=== PATIENT | female | born 2000 | race Hispanic/Latino ===

== ENCOUNTER 2025-02-18 00:55 | Emergency (ER) | payer MEDICAID ==
[~2025-02-18] VITALS: Ht 162.6 cm; Wt 46.7 kg
--- NOTE | 2025-02-18 01:14 | ERN ---
ED Note History of Present Illness Stated Complaint: DIZZINESS,SYNCOPE Chief Complaint: Syncope Time Seen by MD: 01:07 Dictation: This is a 24-year-old female who presented to the emergency room complaining of dizziness and near-syncope for the past 3 days. Apparently she has been feeling dizzy all the time but denied any fevers chills or rigors. No nausea vomitings diarrhea. Last night at 11:40 p.m. patient apparently had so much dizziness she almost had a syncope but no loss of consciousness no fall or injuries and she was helped to the ground by her spouse no seizure activity. No blurred vision diplopia motor weakness or slurred speech. Patient stated that for the past few days she can not hear well with a left ear. She also reports humming noise in the left ear. No nausea vomitings no blurred vision diplopia motor weakness or seizure activity. No ear drainage. She states that she has felt unsteady. Temperature 96.3 pulse 89 respirations 18 blood pressure 113/69 with a pulse oximetry of 98% on room air History of anemia in the past. Allergies: Coded Allergies: No Known Allergies (Unverified Allergy, Unknown, 02/18/25) Home Meds Active Scripts Meclizine HCl (Meclizine HCl) 25 Mg Tablet, 25 MG PO TID for vertigo, #30 TAB 0 Refills Prov:JACEK MICHAUD MD 02/18/25 Prednisone (Prednisone) 20 Mg Tablet, 1 TAB PO AD for 6 Days, #14 TAB 0 Refills TAKE 1 TAB BY MOUTH THREE TIMES PER DAY X3 DAYS, THEN TAKE 1 TAB BY MOUTH TWICE A DAY X2 DAYS, THEN TAKE 1 TAB BY MOUTH ONCE A DAY X1 DAY. Prov:JACEK MICHAUD MD 02/18/25 Past Medical History Past Medical History: Anemia Surgical History: Family History: Negative Social History: Negative History: Not Applicable LMP: Jan 23, 2025 RN Note Reviewed/Agreed w/PFSH: Yes Review of System Dictation Constitutional: Negative for fever,chills, and weight loss Eyes: Negative for injury, pain,redness, and discharge ENT: Negative for injury,pain or swelling, positive for hearing loss in the left side Cardiovascular: Negative for chest pain, palpitations, and edema positive for dizziness and near-syncope, unsteady Respiratory: Negative for shortness of breath, cough, and wheezing, Abdomen/GI: Negative for abdominal pain, nausea, vomiting, diarrhea, and constipation Back: Negative for injury and pain : Negative for injury, bleeding and discharge MS/Extremity: Negative for injury and deformity Skin: Negative for rash, and discoloration Neuro: Negative for headache, weakness, numbness, tingling, and seizure Psych: Negative for suicide ideation, homicidal ideation, and hallucinations Initial Vital Sign VS Vital Signs Date Time Temp Pulse Resp B/P (MAP) Pulse Ox O2 Delivery O2 Flow Rate FiO2 02/18/25 00:56 96.3 89 18 113/69 98 Room Air 02/18/25 01:06 0 21 Physical Exam Dictation General: awake, alert, NAD Head/Face: Normocephalic, atraumatic Eyes: PERRL, EOMI, vision at baseline ENT: oral cavity clear, TMs clear, no signs of infection Neck: Trachea midline, supple, no nuchal rigidity Cardiovascular: RRR, normal S1/S2, No MRGs, no JVD Respiratory: CTAB, no respiratory distress, No rales or wheezes Abdomen: Soft, non-tender, non-distended, normal bowel sounds, no guarding or rebound. Skin: Warm, dry, normal turgor, no rash MS/Extremity: Pulses equal, no cyanosis, neurovascular intact, FROM Neuro: COAx4, GCS 15, strength 5/5, CN 2-12 intact, normal cerebellar exam, normal gait, Psych: Normal behavior, mood, and affect normal Extremities-trace edema without any palpable cords, Homans sign is negative Head impulse test-positive for catch up saccade and very subtle nystagmus in left eye. No vertical skew Results (Laboratory/Radiology) Laboratory/Radiology Laboratory Tests Test 02/18/25 01:24 02/18/25 01:33 Urine Color LIGHT-YELLOW (YELLOW) Urine Appearance CLOUDY (CLEAR) H Urine pH 7.5 (5.0-8.0) Urine Specific [place] 1.024 (1.001-1.031) Urine Protein 10 mg/dL (NEGATIVE) H Urine Glucose (UA) NEGATIVE mg/dL (NEGATIVE) Urine Ketones NEGATIVE mg/dL (NEGATIVE) Urine Occult Blood LARGE (NEGATIVE) H Urine Nitrate NEGATIVE (NEGATIVE) Urine Bilirubin NEGATIVE mg/dL (NEGATIVE) Urine Urobilinogen 0.2 mg/dL (0.2-1.0) Urine Leukocyte Esterase 25 Alanna/uL (NEGATIVE) H Urine RBC TNTC /HPF (0-1) H Urine WBC 0-1 /HPF (0-1) Urine Squamous Epithelial Cells FEW /HPF (0-2) Urine Amorphous Crystals (Auto) RARE /LPF (None Seen) Urine Bacteria None /HPF (None Seen) Urine Opiates Screen NEGATIVE (NEGATIVE) Urine Barbiturates Screen NEGATIVE (NEGATIVE) Urine Phencyclidine Screen NEGATIVE (NEGATIVE) Urine Amphetamines Screen NEGATIVE (NEGATIVE) Urine Benzodiazepines Screen NEGATIVE (NEGATIVE) Urine Cocaine Screen NEGATIVE (NEGATIVE) Urine Marijuana (THC) Screen NEGATIVE (NEGATIVE) White Blood Count 7.4 K/uL (4.8-10.8) Red Blood Count 4.17 MIL/uL (4.00-5.50) Hemoglobin 12.2 g/dL (12.0-16.0) Hematocrit 37.2 % (36-48) Mean Corpuscular Volume 89.2 fL (79-99) Mean Corpuscular Hemoglobin 29.3 pg (27.0-33.0) Mean Corpuscular Hemoglobin Concent 32.8 g/dL (32.0-36.0) Red Cell Distribution Width 12.4 % (11.0-15.5) Platelet Count 243 K/uL (130-400) Mean Platelet Volume 10.6 fL (7.5-10.5) H Immature Granulocyte % (Auto) 0.1 % (0-1) Neutrophils (%) (Auto) 68.6 % (40.0-77.0) Lymphocytes (%) (Auto) 20.6 % (21.0-51.0) L Monocytes (%) (Auto) 8.4 % (3.0-13.0) Eosinophils (%) (Auto) 2.0 % (0.0-8.0) Basophils (%) (Auto) 0.3 % (0.0-5.0) Neutrophils # (Auto) 5.1 K/uL (1.8-7.7) Lymphocytes # (Auto) 1.5 K/uL (1.0-4.8) Monocytes # (Auto) 0.6 K/uL (0.1-1.0) Eosinophils # (Auto) 0.15 K/uL (0.00-0.70) Basophils # (Auto) 0.02 K/uL (0.00-0.20) Absolute Immature Granulocyte (auto 0.01 K/uL (0-1) Nucleated Red Blood Cells 0.0 % (0.0-0.19) Sodium Level 140 mmol/L (136-145) Potassium Level 3.7 mmol/L (3.5-5.1) Chloride Level 103 mmol/L (101-111) Carbon Dioxide Level 28 mmol/L (21-32) Blood Urea Nitrogen 15 mg/dL (7-18) Creatinine 0.6 mg/dL (0.5-1.0) Glomerular Filtration Rate Calc 128 mL/min (>90) Random Glucose 95 mg/dL (70-105) Total Calcium 9.0 mg/dL (8.5-10.1) Total Creatine Kinase 55 U/L (21-232) Troponin I High Sensitivity < 4.0 ng/L (4-50) L Serum Test, Qualitative NEGATIVE (NEGATIVE) Labs Reviewed?: Yes ED Course ED Course Orders Procedure Category Date Status Time Cardiac Panel LAB 02/18/25 Complete 01:09 Cbc With Differential LAB 02/18/25 Complete 01:09 Basic Metabolic Panel LAB 02/18/25 Complete 01:09 Testing, LAB 02/18/25 Complete Serum Hcg 01:09 Urinalysis Profile LAB 02/18/25 Complete 01:09 12 Lead Ekg Tracing- EKG 02/18/25 Resulted Technical 01:09 Drug Screen Urine LAB 02/18/25 Complete 01:09 0.9%Nacl 1000ml (Ns PHA 02/18/25 Complete 1000ml) 02:00 Chest 1vw RAD 02/18/25 Resulted 01:58 Methylprednisolone PHA 02/18/25 Complete Succ 125mg (Solu-Medr 02:30 Meclizine Hcl 12.5 Mg PHA 02/18/25 Complete (Antivert 12.5 Mg) 02:30 Current Medications Medications (Trade) Dose Ordered Sig/Praveen Route PRN Reason Start Time Stop Time Status Last Admin Dose Admin Meclizine HCl (ANTIvert 12.5 mg) 12.5 mg ONCE ONCE PO 02/18/25 02:30 02/18/25 02:31 DC 02/18/25 02:20 Methylprednisolone Sodium Succinate (Solu-medROL 125MG) 60 mg ONCE ONCE IM 02/18/25 02:30 02/18/25 02:31 DC 02/18/25 02:21 Sodium Chloride 1,000 ml @ 0 mls/hr ONCE ONCE IV 02/18/25 02:00 02/18/25 02:01 DC 02/18/25 01:41 Vital Signs Date Time Temp Pulse Resp B/P (MAP) Pulse Ox O2 Delivery O2 Flow Rate FiO2 02/18/25 03:43 97.2 80 15 97/82 100 Room Air* 0 21 02/18/25 02:40 76 16 117/86 100 Room Air* 0 21 02/18/25 01:06 97.2 82 17 106/80 100 Room Air* 0 21 02/18/25 00:56 96.3 89 18 113/69 98 Room Air Medical Decision Making MDM Differential diagnosis: Benign positional vertigo, labyrinthitis, Meniere's disease, vertebrobasilar insufficiency, aortic stenosis, arrhythmia, volume depletion This is a 24-year-old female who presented to the emergency room complaining of dizziness and near-syncope for the past 3 days. Apparently she has been feeling dizzy all the time but denied any fevers chills or rigors. No nausea vomitings diarrhea. Last night at 11:40 p.m. patient apparently had so much dizziness she almost had a syncope but no loss of consciousness no fall or injuries and she was helped to the ground by her spouse no seizure activity. No blurred vision diplopia motor weakness or slurred speech. Patient stated that for the past few days she can not hear well with a left ear. She also reports humming noise in the left ear. No nausea vomitings no blurred vision diplopia motor weakness or seizure activity. No ear drainage. She states that she has felt unsteady. Temperature 96.3 pulse 89 respirations 18 blood pressure 113/69 with a pulse oximetry of 98% on room air History of anemia in the past. Patient's symptoms of left ear hearing loss with tinnitus, dizziness near syncopal symptoms 1:55 a.m. labs reviewed CBC is with a normal limits BNP 7 is negative. test is negative urine drug screen is negative and urinalysis showed some mild occult hematuria but otherwise no evidence of any cystitis. Chest x-ray does not show any acute infiltrate or pulmonary edema. With the clinical symptom and signs presentation and positive head impulse test, I gave her a trial of steroid with the meclizine 3:25 a.m. patient admits to feeling much better than when she came in. Discharge her on a trial of steroid and anti vertigo medications. Instructed he r to return to the emergency room should her symptoms get worse I updated both of them on labs slight a normal EKG. Rationale: Tests considered and ordered secondary to shared decision making include: Labs, urinalysis, chest x-ray EKG Previous outside records reviewed: Old ER visits. Risk of complication and/or morbidity or mortality of patient management: None Medications-Per medication reconciliation Need for hospitalization: Patient does not meet criteria for hospitalization. Need for emergency major/minor surgery: No There are no social concerns with this patient. Prescription drug management Prescriptions will include symptomatic care Patient's prior external medical records from other ER visits were reviewed by me as indicated. Prior testing and results from previous visits were reviewed. Prior tests were taken into account with medical decision making and resource utilization, independent historian/historians were used to obtain complete medical history. I independently interpreted the test that were performed, results were reviewed by me and considered findings on radiology if ordered. Medical management and examination interpretation discussions were had by me with other qualified healthcare professionals as indicated for the patient's care. Problem List Problem List: (1) Labyrinthitis of left ear (2) Vertigo DX & DISP Disposition: Discharge Departure Impression: Primary Impression: Labyrinthitis of left ear Additional Impression: Vertigo Condition: Stable Scripts Meclizine HCl (Meclizine HCl) 25 Mg Tablet 25 MG PO TID for vertigo, #30 TAB 0 Refills Prov: JACEK MICHAUD MD 02/18/25 Prednisone (Prednisone) 20 Mg Tablet 1 TAB PO AD for 6 Days, #14 TAB 0 Refills TAKE 1 TAB BY MOUTH THREE TIMES PER DAY X3 DAYS, THEN TAKE 1 TAB BY MOUTH TWICE A DAY X2 DAYS, THEN TAKE 1 TAB BY MOUTH ONCE A DAY X1 DAY. Prov: JACEK MICHAUD MD 02/18/25 Additional Instructions: Patient and the caregiver have been informed of all the diagnostic tests and the imaging conducted during the today's visit to the emergency room and has verbalized understanding of the results I have personally reviewed and interpreted all diagnostic exams performed here in the ER today as well as the vital signs documented by the nursing staff. The patient is now being discharged to home and should follow up with the primary care physician or the specialist as directed by the ER staff. Follow-up with primary care provider in 1 to 2 days. Take medications as directed here in the emergency room. Okay to continue home medications unless otherwise discussed during your visit in the emergency room today. Return to your nearest emergency room if symptoms worsen or if there is no improvement. Call 911 if you need immediate assistance. Take Tylenol or Motrin [id number] as needed and if no contraindications are present. Increase oral hydration. A wound culture or urine culture was ordered here in the emergency room department please follow-up with primary care provider and advise them to get repeat ports from our facility. If you had any [place] wrap/splints that were applied here, please do not remove them until you see your primary care or specialty. Referrals: NONE (PCP) JACEK MICHAUD MD Feb 18, 2025 01:14
--- NOTE | 2025-02-18 01:29 | EKG ---
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
[2025-02-18 01:40] LABS: IMMATURE GRANULOCYTE ABSOLUTE 0.01 K/uL (0-1); NUCLEATED RED BLOOD CELLS 0.0 % (0.0-0.19); PLATELET COUNT (AUTO) 243 K/uL (130-400); RED BLOOD CELL COUNT(AUTO) 4.17 MIL/uL (4.00-5.50); RED CELL DISTRIBUTION WIDTH 12.4 % (11.0-15.5); WHITE BLOOD COUNT (AUTO) 7.4 K/uL (4.8-10.8)
[2025-02-18] MEDS: 0.9%NACL 1000ML 1,000 ML IV ONE (01:41)
[2025-02-18 01:42] LABS: APPEARANCE,URINE CLOUDY (CLEAR); GLUCOSE, URINE (UA) NEGATIVE (NEGATIVE); LEUKOCYTE ESTERASE ,URINE 25 Leu/uL (NEGATIVE); NITRATE,URINE NEGATIVE (NEGATIVE); OCCULT BLOOD,URINE LARGE (NEGATIVE)
[2025-02-18 01:44] LABS: ADD UA MICROSCOPIC YES
[2025-02-18 01:47] LABS: SQUAMOUS EPITHELIAL CELL,UR FEW /HPF (0-2)
[2025-02-18 01:49] LABS: AMPHET/METH SCREEN,URINE NEGATIVE (NEGATIVE); BARBITURATE SCREEN, URINE NEGATIVE (NEGATIVE); CANNABINOID SCREEN,URINE NEGATIVE (NEGATIVE); COCAINE SCREEN,URINE NEGATIVE (NEGATIVE)
[2025-02-18 01:50] LABS: CREATININE 0.6 mg/dL (0.5-1.0); GLOMERULAR FILTR. RATE CALC 128 mL/min (>90); GLUCOSE,RANDOM 95 mg/dL (70-105); SODIUM SERUM 140 mmol/L (136-145); UREA NITROGEN, BLOOD 15 mg/dL (7-18)
[2025-02-18 01:58] LABS: CREATINE KINASE, TOTAL 55 U/L (21-232)
[2025-02-18] MEDS ORDERED: PRED20TA3 PO (03:24)
[2025-02-18] MEDS ORDERED: MECL-302 PO (03:24)
--- NOTE | 2025-02-18 03:35 | HMCIMG ---
EXAM: CR Chest, 1 View. CLINICAL HISTORY: near syncope COMPARISON: None provided. FINDINGS: LUNGS: The lungs show no infiltrate or other acute finding. PLEURAL SPACES: No pleural effusion or pneumothorax. MEDIASTINUM: Cardiac size and mediastinal contours are within normal limits. BONES: No aggressive appearing osseous lesion seen. IMPRESSION: No acute cardiopulmonary pathology is evident. /Mutual
[2025-02-18 03:43] VITALS: BP 97/82; PULSE 80; RESP 15; TEMP 97.2; O2SAT 100
== END 2025-02-18 03:44 | disposition home or self-care (01) ==
LOC: EDH 00:55
DX: H83.02 Labyrinthitis, left ear (principal); R42 Dizziness and giddiness; Z79.899 Other long term (current) drug therapy
CPT/HCPCS: 99285; 96360; 71045; 82550; 84484; 80048; 80305; 84703; 85025; 81001; 36415; 96372; 93005; J2919